=== PATIENT | male | born 1945 | race Caucasian/White ===

== ENCOUNTER 2020-07-03 12:30 | Inpatient (IN) | payer MEDICARE, BC ==
[2020-07-03 14:09] LABS: Hemoglobin 12.1 g/dL (13.5-17.5); Mean Corpuscular HGB CONC 33.6 g/dL (32.0-36.0); Mean Corpuscular Hemoglobin 30.1 pg (27.0-33.0); Mean Corpuscular Volume 89.6 fl (81.2-95.1); Platelet Count 313 10x3/uL (150-450); RBC Distribution Width 12.3 % (11.5-14.5); Red Blood Cell (RBC) Count 4.02 10x6/uL (4.32-5.72); White Blood Cell (WBC) Count 9.7 10x3/uL (3.5-10.5)
[2020-07-03 14:13] LABS: Anion Gap 15 mmol/L (10-20); BUN (Urea Nitrogen) 57 mg/dL (8.4-25.7); Calc. Creatinine Clearance 0 mL/min (70-130); Calcium 9.3 mg/dL (7.8-10.44); Carbon Dioxide 26 mmol/L (23-31); Chloride 100 mmol/L (98-107); Glucose 220 mg/dL (83-110); Potassium 4.1 mmol/L (3.5-5.1); Sodium 137 mmol/L (136-145)
[2020-07-03 14:15] LABS: INR-International Normal Ratio 0.9; PTT 24.1 sec (22.0-33.0); Prothrombin Time 10.3 sec (9.5-12.1)
[2020-07-04 01:05] LABS: SARS-CoV-2 PCR by NAA Not Detected (NotDetected)
[2020-07-08] MEDS ORDERED: EPINEPHrine 1 MG/ML AMP ONE (06:18)
[2020-07-08] MEDS ORDERED: Dexamethasone 4 mg/ml Vial ONE (06:18)
[2020-07-08] MEDS ORDERED: Albumin 5% 500 ML ONE (06:18)
[2020-07-08] MEDS ORDERED: Bupivacaine PF 0.5% 30 ML VIAL ONE (06:18)
[2020-07-08] MEDS ORDERED: Fentanyl 250 MCG/5 ML VIAL ONE (06:40)
[2020-07-08] MEDS ORDERED: Midazolam HCl 2 mg/2 ml Vial ONE (06:40)
[2020-07-08] MEDS ORDERED: Dexmedetomidine 200 MCG/2 ML VIAL ONE (06:41)
[2020-07-08] MEDS ORDERED: Phenylephrine 10 MG/ML VIAL ONE ×2 (06:41→09:27)
[2020-07-08] MEDS ORDERED: Insulin Regular 300 UNITS/3 ML VIAL ONE (06:41)
[2020-07-08] MEDS ORDERED: Heparin 30,000 units/30 ml VIAL ONE (08:06)
[2020-07-08] MEDS ORDERED: PROPOFOL 200 MG/20 ML VIAL ONE (08:06)
[2020-07-08] MEDS ORDERED: Heparin 5,000 UNITS/ML VIAL ONE (08:06)
[2020-07-08] MEDS ORDERED: Aminocaproic Acid 5 GM/20 ML VIAL ONE (08:06)
[2020-07-08] MEDS ORDERED: Calcium Chloride 1 GM/10 ML Abboject SYRINGE ONE (08:06)
[2020-07-08] MEDS ORDERED: Mannitol 12.5 GM/50 ML ONE (08:06)
[2020-07-08] MEDS ORDERED: Cardioplegic Soln 1,000 ML BAG ONE (08:06)
[2020-07-08] MEDS ORDERED: Thrombin 5000 UNITS/5 ML VIAL ONE (08:06)
[2020-07-08] MEDS ORDERED: Papaverine 60 MG/2 ML VIAL ONE (08:06)
[2020-07-08] MEDS ORDERED: Lidocaine 1% PF 5 ML VIAL ONE (08:06)
[2020-07-08] MEDS ORDERED: Potassium Chloride 60 MEQ/30 ML VIAL ONE (08:06)
[2020-07-08] MEDS ORDERED: PHENYLEPHRINE-NS 100 MCG/ML 10 ML SYRINGE ONE (08:06)
[2020-07-08] MEDS ORDERED: Sodium Bicarb 50 MEQ/50 ML Abboject 8.4% SYRINGE ONE (08:06)
[2020-07-08] MEDS ORDERED: Rocuronium Bromide 10 MG/ML (10ML VIAL) ONE (08:06)
[2020-07-08] MEDS ORDERED: Magnesium Sulfate 1 GM/2 ML VIAL ONE (08:06)
[2020-07-08] MEDS ORDERED: Lidocaine 2% PF 100 mg/5 ml Syringe ONE (08:06)
[2020-07-08] MEDS ORDERED: Acetaminophen 325 MG TAB PO PRN (10:58)
[2020-07-08] MEDS ORDERED: Bisacodyl 5 MG TAB PO PRN (10:58)
[2020-07-08] MEDS ORDERED: Post-Op Insulin Drip Protocol IVPB ONE (10:58)
[2020-07-08] MEDS ORDERED: Hetastarch 6% 500 ML 500 ML IVPB PRN (10:58)
[2020-07-08] MEDS ORDERED: Fentanyl 100 MCG/2 ML VIAL SLOW IVP PRN ×2 (10:58)
[2020-07-08] MEDS ORDERED: Mag-Al 1200 mg/1200 mg/30 ML UDCUP PO PRN (10:58)
[2020-07-08] MEDS ORDERED: Guaifenesin DM 100-10/5 ML UDCUP PO PRN (10:58)
[2020-07-08] MEDS ORDERED: Potassium Chloride 20 MEQ/100 ML PREMIX BAG IVPB PRN (10:58)
[2020-07-08] MEDS ORDERED: traMADol HCl 50 MG TAB PO PRN ×2 (10:58)
[2020-07-08] MEDS ORDERED: Phenylephrine 40 MG in Sodium Chloride 0.9% 250 ML 250 ML IVPB PRN (10:58)
[2020-07-08] MEDS ORDERED: hydrALAZINE 20 MG/ML VIAL SLOW IVP PRN (10:58)
[2020-07-08] MEDS ORDERED: Bisacodyl 10 MG SUPP PR PRN (10:58)
[2020-07-08] MEDS ORDERED: Morphine 2 MG/ML VIAL SLOW IVP PRN (10:58)
[2020-07-08] MEDS ORDERED: niCARdipine 25 MG in Sodium Chloride 0.9% 250 ML 250 ML IVPB PRN (10:58)
[2020-07-08] MEDS ORDERED: Promethazine HCl 25 MG/ML VIAL IM PRN (10:58)
[2020-07-08] MEDS ORDERED: Nitroglycerin 50 MG/250 ML BOT 250 ML IVPB PRN (10:58)
[2020-07-08] MEDS ORDERED: D5 1/2 NS w/20 mEq KCL 1,000 ML IV SCH (11:00)
[2020-07-08] MEDS ORDERED: Magnesium 2 GM/50 ML 2 GM in Premix Bag 1 BAG IVPB SCH (11:00)
[2020-07-08 11:23] LABS: Actual Bicarbonate (HCO3a) 22.8 mEq/L (22-28); Base Excess (BEa) -2.8 mEq/L (-2.0 to +3.0); CO2 Tension 42.7 mmHg (35.0-45.0); Calcium, Ionized (arterial) 1.09 mmol/L (1.12-1.30); Carboxyhemoglobin (COHb) 0.2 gm% (0.0-3.0); Hemoglobin (Hb) 10.9 g/dL (14.0-18.0); Potassium - ABG Lab 4.02 mmol/L (3.70-5.30); pH, Arterial 7.35 (7.35-7.45)
[2020-07-08 11:24] LABS: O2 Tension (PaO2), arterial 57.9 mmHg (> 70.0); Puncture Site Arterial Line
[2020-07-08] MEDS ORDERED: Albumin 5% 0 ML ONE (11:27)
[2020-07-08 11:28] LABS: ALV-art Gradient 245.225 mmHg (0-20)
[2020-07-08] MEDS ORDERED: DOPamine 400 MG/D5W 250 ML 0 ML ONE (11:28)
[2020-07-08 11:33] VITALS: BMI 31.4
[2020-07-08] MEDS ORDERED: Nitroglycerin 50 MG/250 ML BOT 250 ML ONE (11:34)
[2020-07-08 11:42] LABS: Hemoglobin 11.1 g/dL (14.0-18.0); Mean Corpuscular HGB CONC 32.4 g/dL (32.0-36.0); Mean Corpuscular Hemoglobin 29.7 pg (27.0-31.0); Mean Corpuscular Volume 91.7 fL (78.0-98.0); Platelet Count 214 thou/uL (130-400); RBC Distribution Width 11.7 % (11.5-14.5); Red Blood Cell (RBC) Count 3.72 mill/uL (4.70-6.10); White Blood Cell (WBC) Count 20.8 thou/uL (4.8-10.8)
[2020-07-08] MEDS ORDERED: Insulin Regular 300 UNITS/3 ML VIAL SC PRN (11:45)
[2020-07-08] MEDS ORDERED: HUMULIN R 100 UNITS in Sodium Chloride 0.9% 100 ML IVPB SCH (11:45)
[2020-07-08] MEDS ORDERED: Dextrose 5% in Water 1,000 ML IV PRN (11:45)
[2020-07-08] MEDS ORDERED: Dextrose 50% Abboject 50 ML SYRINGE SLOW IVP PRN (11:45)
[2020-07-08 11:52] LABS: INR-International Normal Ratio 1.3; PTT 34.1 sec (22.9-36.1); Prothrombin Time 16.4 sec (12.0-14.7)
[2020-07-08 11:53] LABS: Anion Gap 12 mmol/L (10-20); BUN (Urea Nitrogen) 42 mg/dL (8.4-25.7); Calc. Creatinine Clearance 43 mL/min (70-130); Calcium 7.5 mg/dL (7.8-10.44); Carbon Dioxide 21 mmol/L (23-31); Chloride 107 mmol/L (98-107); Glucose 97 mg/dL (83-110); Potassium 4.1 mmol/L (3.5-5.1); Sodium 136 mmol/L (136-145)
[2020-07-08 12:14] LABS: Band 18 % (5-11); Eosinophils 1 % (0-10); Lymphocytes 8 % (21-51); MDiff Complete? YES; Monocytes 5 % (0-10); Neutrophil 68 % (42-75); RBC Morphology Normal
[2020-07-08] MEDS: CEFAZOLIN 2 GM in Premix Bag 1 BAG IVPB SCH ×2 (13:45→22:17)
[2020-07-08] MEDS: Ondansetron PF 4 MG/2 ML Vial IVP PRN (16:45)
[2020-07-08 17:18] LABS: Hemoglobin 10.7 g/dL (14.0-18.0)
[2020-07-08 17:29] LABS: Potassium 3.6 mmol/L (3.5-5.1)
[2020-07-08] MEDS: Famotidine/PF 20 mg/2ml Vial SLOW IVP SCH (22:16)
[2020-07-09 04:32] LABS: #Lymphocytes 0.8 thou/uL (1.20-3.40); #Monocytes 1.3 thou/uL (0.11-0.59); #Neutrophils 13.1 thou/uL (1.40-6.50); %Basophils 0.1 % (0.0-1.0); %Eosinophils 0.1 % (0.0-10.0); %Lymphocytes 5.6 % (21.0-51.0); %Monocytes 8.3 % (0.0-10.0); Mean Corpuscular HGB CONC 33.1 g/dL (32.0-36.0); Mean Corpuscular Hemoglobin 30.5 pg (27.0-31.0); Mean Corpuscular Volume 92.1 fL (78.0-98.0); Mean Platelet Volume 7.6 fL (7.4-10.4); Platelet Count 198 thou/uL (130-400); RBC Distribution Width 11.9 % (11.5-14.5); Red Blood Cell (RBC) Count 2.96 mill/uL (4.70-6.10); White Blood Cell (WBC) Count 15.2 thou/uL (4.8-10.8)
[2020-07-09 04:55] LABS: Anion Gap 10 mmol/L (10-20); BUN (Urea Nitrogen) 48 mg/dL (8.4-25.7); Calc. Creatinine Clearance 37 mL/min (70-130); Calcium 8.2 mg/dL (7.8-10.44); Carbon Dioxide 23 mmol/L (23-31); Chloride 107 mmol/L (98-107); Glucose 138 mg/dL (83-110); Potassium 4.1 mmol/L (3.5-5.1); Sodium 136 mmol/L (136-145)
[2020-07-09] MEDS: Ondansetron PF 4 MG/2 ML Vial IVP PRN (05:36)
[2020-07-09] MEDS: CEFAZOLIN 2 GM in Premix Bag 1 BAG IVPB SCH (05:36)
[2020-07-09] MEDS: Famotidine/PF 20 mg/2ml Vial SLOW IVP SCH (07:51)
[2020-07-09] MEDS ORDERED: Nitroglycerin 0.4 MG TAB (25 Tab Bottle) SL PRN (07:51)
[2020-07-09] MEDS ORDERED: Promethazine HCl 25 MG/ML VIAL IM PRN (07:51)
[2020-07-09] MEDS ORDERED: Mag-Al 1200 mg/1200 mg/30 ML UDCUP PO PRN (07:51)
[2020-07-09] MEDS ORDERED: diphenhydrAMINE 25 MG CAP PO PRN (07:51)
[2020-07-09] MEDS ORDERED: Guaifenesin DM 100-10/5 ML UDCUP PO PRN (07:51)
[2020-07-09] MEDS ORDERED: Zolpidem Tartrate 5 MG TAB PO PRN (07:51)
[2020-07-09] MEDS ORDERED: Mineral Oil ENEMA PR PRN (07:51)
[2020-07-09] MEDS ORDERED: Bisacodyl 10 MG SUPP PR PRN (07:51)
[2020-07-09] MEDS ORDERED: Milk Of Magnesia 30 ML UDCUP PO PRN (07:51)
[2020-07-09] MEDS ORDERED: Bisacodyl 5 MG TAB PO PRN (07:51)
[2020-07-09] MEDS ORDERED: Aspirin 325 MG TAB PO SCH (09:00)
[2020-07-09] MEDS ORDERED: Lantus 1000 UNITS/10 ML VIAL SC SCH (09:00)
[2020-07-09] MEDS ORDERED: Magnesium 2 GM/50 ML 2 GM in Premix Bag 1 BAG IVPB SCH (09:00)
[2020-07-09] MEDS: Aspirin 325 mg Enteric Coated Tablet PO SCH (09:12)
[2020-07-09] MEDS: Famotidine 20 MG TAB PO SCH (09:12)
[2020-07-09] MEDS: Insulin Regular 300 UNITS/3 ML VIAL SC PRN ×3 (11:45→21:01)
[2020-07-09] MEDS ORDERED: Dextrose 5% in Water 1,000 ML IV PRN (15:30)
[2020-07-09] MEDS ORDERED: Dextrose 50% Abboject 50 ML SYRINGE SLOW IVP PRN (15:30)
[2020-07-09] MEDS: Rosuvastatin 10 MG TAB PO SCH (21:02)
[2020-07-10] MEDS: Insulin Regular 300 UNITS/3 ML VIAL SC PRN ×3 (05:45→17:11)
[2020-07-10] MEDS: Famotidine 20 MG TAB PO SCH (09:04)
[2020-07-10] MEDS: Lantus 1000 UNITS/10 ML VIAL SC SCH (09:04)
[2020-07-10] MEDS: Aspirin 325 mg Enteric Coated Tablet PO SCH (09:04)
[2020-07-10] MEDS: Rosuvastatin 10 MG TAB PO SCH (20:20)
[2020-07-11 07:14] VITALS: TEMP 98.3
[2020-07-11] MEDS: Famotidine 20 MG TAB PO SCH (09:38)
[2020-07-11] MEDS: Lantus 1000 UNITS/10 ML VIAL SC SCH (09:38)
[2020-07-11] MEDS: Aspirin 325 mg Enteric Coated Tablet PO SCH (09:38)
[2020-07-11 13:27] VITALS: BP 116/56
== END 2020-07-11 11:15 | disposition home or self-care (01) | DRG 236 ==
LOC: SURG A 07-08 05:57 → CCU 07-08 11:14 → 2NO 07-09 15:59
PROVIDERS: ADMIT Thoracic Surgery (Cardiothoracic Vascular Surgery); ATTEND Thoracic Surgery (Cardiothoracic Vascular Surgery)
PROC: 021109W Bypass Coronary Artery, Two Arteries from Aorta with Autologous Venous Tissue, Open Approach (ICD-10-PCS; principal; 2020-07-08)
PROC: 02100Z9 Bypass Coronary Artery, One Artery from Left Internal Mammary, Open Approach (ICD-10-PCS; 2020-07-08)
PROC: 06BQ0ZZ Excision of Left Saphenous Vein, Open Approach (ICD-10-PCS; 2020-07-08)
PROC: 5A1221Z Performance of Cardiac Output, Continuous (ICD-10-PCS; 2020-07-08)
DX: I25.10 Atherosclerotic heart disease of native coronary artery without angina pectoris (principal); N18.4 Chronic kidney disease, stage 4 (severe); Z20.822 Contact with and (suspected) exposure to COVID-19; E78.00 Pure hypercholesterolemia, unspecified; E78.2 Mixed hyperlipidemia; I65.23 Occlusion and stenosis of bilateral carotid arteries; E11.22 Type 2 diabetes mellitus with diabetic chronic kidney disease; I12.9 Hypertensive chronic kidney disease with stage 1 through stage 4 chronic kidney disease, or unspecified chronic kidney disease; E66.9 Obesity, unspecified; Z79.899 Other long term (current) drug therapy; Z79.82 Long term (current) use of aspirin; Z79.4 Long term (current) use of insulin; Z98.890 Other specified postprocedural states; Z90.89 Acquired absence of other organs; Z82.49 Family history of ischemic heart disease and other diseases of the circulatory system; Z80.51 Family history of malignant neoplasm of kidney; Z68.21 Body mass index [BMI] 21.0-21.9, adult
CPT/HCPCS: 36415; 36416; 36430; 71045; 80048; 82805; 85025; 85027; 85610; 85730; 86850; 86870; 86900; 86901; 86905; 86922; 87635; 93005; 93010; 93798; 94002; 94150; J0171; J0690; J1100; J1642; J1644; J1815; J2001; J2150; J2250; J2370; J2405; J2440; J2704; J3010; J3370; J3475; J3480; J3490; J7050; P9045; S0017; S0020; S0028; U0003; U0005

== ENCOUNTER 2020-07-03 12:31 | Outpatient (CLI) | payer MEDICARE, OTHER | END 2020-07-03 12:32 | disposition home or self-care (01) | LOC: LABBT 12:31 | PROVIDERS: ATTEND Thoracic Surgery (Cardiothoracic Vascular Surgery) | DX: Z01.818 Encounter for other preprocedural examination (principal); I25.10 Atherosclerotic heart disease of native coronary artery without angina pectoris; Z20.822 Contact with and (suspected) exposure to COVID-19 | CPT/HCPCS: 71046; 80048; 85027; 85610; 85730; 86850; 86900; 86901; U0003; U0005; 87635 ==

== ENCOUNTER 2023-01-25 09:00 | Inpatient (IN) | payer MEDICARE, BC ==
[2023-01-25 09:46] LABS: #Basophils 0.1 thou/uL (0.0-0.2); #Eosinphils 0.2 thou/uL (0.0-0.7); #Monocytes 0.8 thou/uL (0.11-0.59); #Neutrophils 9.2 thou/uL (1.40-6.50); %Basophils 0.7 % (0.0-1.0); %Eosinophils 1.3 % (0.0-10.0); %Lymphocytes 13.7 % (21.0-51.0); %Monocytes 6.5 % (0.0-10.0); %Neutrophils 77.4 % (42.0-75.0); Hematocrit 39.2 % (42.0-52.0); Hemoglobin 13.2 g/dL (14.0-18.0); Mean Corpuscular HGB CONC 33.7 g/dL (32.0-36.0); Mean Corpuscular Hemoglobin 30.7 pg (27.0-31.0); Mean Corpuscular Volume 91.2 fl (78.0-98.0); Mean Platelet Volume 9.4 fL (7.4-10.4); Platelet Count 222 10x3/uL (130-400); RBC Distribution Width 12.4 % (11.5-14.5); White Blood Cell (WBC) Count 11.9 10x3/uL (4.8-10.8)
[2023-01-25 10:12] LABS: ALT (SGPT) 39 U/L (8-55); AST (SGOT) 31 U/L (5-34); Albumin 3.9 g/dL (3.4-4.8); Alkaline Phosphatase 67 U/L (40-110); Anion Gap 13 mmol/L (10-20); BUN (Urea Nitrogen) 47 mg/dL (8.4-25.7); Bilirubin, Total 0.5 mg/dL (0.2-1.2); Calc. Creatinine Clearance 0 mL/min (70-130); Calcium 9.6 mg/dL (7.8-10.44); Carbon Dioxide 25 mmol/L (23-31); Chloride 100 mmol/L (98-107); Estimated GFR 24; Glucose 210 mg/dL (83-110); Lipase 52 U/L (8-78); Magnesium 1.9 mg/dL (1.6-2.6); Potassium 3.9 mmol/L (3.5-5.1); Protein, Total 6.9 g/dL (5.8-8.1); Sodium 134 mmol/L (136-145)
[2023-01-25 10:16] LABS: Troponin I 0.043 ng/mL (< 0.028)
[2023-01-25] MEDS ORDERED: Aspirin Chewable 81 MG TAB ONE (10:48)
[2023-01-25] MEDS ORDERED: Dextrose 5% in Water 1,000 ML IV PRN (10:58)
[2023-01-25] MEDS ORDERED: Glucagon 1 MG/ML KIT IM PRN (10:58)
[2023-01-25] MEDS ORDERED: Dextrose 50% Abboject 50 ML SYRINGE SLOW IVP PRN (10:58)
[2023-01-25] MEDS ORDERED: Ondansetron PF 4 MG/2 ML Vial IVP PRN (10:59)
[2023-01-25] MEDS ORDERED: Acetaminophen 325 MG TAB PO PRN (10:59)
[2023-01-25] MEDS ORDERED: traMADol HCl 50 MG TAB PO PRN (11:03)
[2023-01-25 11:28] LABS: Cardiac Risk 2.5 (Less than 4.5)
[2023-01-25 11:29] LABS: Hemoglobin A1c 7.9 % (4.0-6.0)
[2023-01-25 14:11] LABS: Troponin I 0.059 ng/mL (< 0.028)
[2023-01-25 15:49] VITALS: BMI 25.2
[2023-01-25 18:18] LABS: Troponin I 0.043 ng/mL (< 0.028)
[2023-01-25] MEDS: HumaLOG 300 UNITS/3 ML VIAL SC PRN (18:36)
[2023-01-26 06:11] LABS: #Basophils 0.1 thou/uL (0.0-0.2); #Eosinphils 0.2 thou/uL (0.0-0.7); #Neutrophils 5.9 thou/uL (1.40-6.50); %Basophils 0.7 % (0.0-1.0); %Eosinophils 2.1 % (0.0-10.0); %Lymphocytes 19.9 % (21.0-51.0); %Monocytes 11.2 % (0.0-10.0); %Neutrophils 65.9 % (42.0-75.0); Mean Corpuscular HGB CONC 32.4 g/dL (32.0-36.0); Mean Corpuscular Hemoglobin 30.2 pg (27.0-31.0); Mean Platelet Volume 9.5 fL (7.4-10.4); Platelet Count 214 10x3/uL (130-400); RBC Distribution Width 12.5 % (11.5-14.5); Red Blood Cell (RBC) Count 3.98 mill/uL (4.70-6.10)
[2023-01-26 06:35] LABS: Anion Gap 14 mmol/L (10-20); BUN (Urea Nitrogen) 46 mg/dL (8.4-25.7); Calc. Creatinine Clearance 25 mL/min (70-130); Calcium 9.2 mg/dL (7.8-10.44); Carbon Dioxide 25 mmol/L (23-31); Chloride 102 mmol/L (98-107); Estimated GFR 23; Glucose 151 mg/dL (83-110); Potassium 3.5 mmol/L (3.5-5.1); Sodium 137 mmol/L (136-145)
[2023-01-26] MEDS: Insulin Glargine 30 UNITS/0.3 ML VIAL SC SCH (08:26)
[2023-01-26] MEDS: Amlodipine 5 MG TAB PO SCH (08:28)
[2023-01-26] MEDS: Rosuvastatin 20 MG TAB PO SCH (08:28)
[2023-01-26] MEDS: Aspirin 81 mg Enteric Coated Tablet PO SCH (08:29)
[2023-01-26] MEDS: Ezetimibe 10 MG TAB PO SCH (08:29)
[2023-01-26] MEDS ORDERED: Rosuvastatin 10 MG TAB PO SCH (09:00)
[2023-01-27 03:17] VITALS: BP 114/55
[2023-01-27] MEDS ORDERED: Dexamethasone 4 mg/ml Vial ONE (06:39)
[2023-01-27] MEDS ORDERED: EPINEPHrine 1 MG/ML VIAL ONE (06:39)
[2023-01-27] MEDS ORDERED: Heparin 5,000 UNITS/ML VIAL ONE (06:39)
[2023-01-27] MEDS ORDERED: Bupivacaine PF 0.5% 30 ML VIAL ONE (06:40)
[2023-01-27] MEDS ORDERED: PHENYLEPHRINE-NS 100 MCG/ML 10 ML SYRINGE ONE (07:19)
[2023-01-27] MEDS ORDERED: ePHEDrine Sulfate 50 MG/10 ML VIAL ONE ×2 (07:19→07:49)
[2023-01-27] MEDS ORDERED: CEFAZOLIN 2 GM VIAL ONE (07:19)
[2023-01-27] MEDS ORDERED: Succinylcholine 200 MG/10 ml SYRINGE FS ONE ×2 (07:19→07:29)
[2023-01-27] MEDS ORDERED: Sodium Chloride 0.9% 100 ML ONE (07:19)
[2023-01-27] MEDS ORDERED: Rocuronium Bromide 10 MG/ML (10ML VIAL) ONE (07:19)
[2023-01-27] MEDS ORDERED: PROPOFOL 200 MG/20 ML VIAL ONE (07:19)
[2023-01-27] MEDS ORDERED: PROPOFOL 20 ML ONE (07:28)
[2023-01-27] MEDS ORDERED: fentaNYL PF 100 MCG/2 ML SYRINGE ONE ×2 (07:28→10:08)
[2023-01-27] MEDS ORDERED: Ondansetron PF 4 MG/2 ML Vial ONE ×2 (07:29→10:39)
[2023-01-27] MEDS ORDERED: Lidocaine 1% PF 5 ML VIAL ONE (07:29)
[2023-01-27] MEDS ORDERED: Heparin 10,000 UNITS/ 10 ML VIAL ONE ×2 (08:02→08:03)
[2023-01-27] MEDS ORDERED: Protamine Sulfate 50 MG/5 ML VIAL ONE ×2 (08:22)
[2023-01-27] MEDS ORDERED: Glycopyrrolate 0.2 MG/ML 5 ML SYRINGE ONE (08:43)
[2023-01-27] MEDS ORDERED: NEOSTIGMINE 3 MG/3 ML SYR 3 MG/3 ML SYRINGE ONE (08:43)
[2023-01-27] MEDS ORDERED: Acetaminophen 325 MG TAB PO PRN (09:25)
[2023-01-27] MEDS ORDERED: Nitroglycerin 50 MG/250 ML BOT 250 ML IVPB PRN (09:25)
[2023-01-27] MEDS ORDERED: hydrALAZINE 20 MG/ML VIAL SLOW IVP PRN (09:25)
[2023-01-27] MEDS ORDERED: Phenylephrine 40 MG in Sodium Chloride 0.9% 250 ML 250 ML IVPB PRN (09:25)
[2023-01-27] MEDS ORDERED: Ipratropium/Albuterol 3 ML NEB NEB PRN (09:25)
[2023-01-27] MEDS ORDERED: Ondansetron PF 4 MG/2 ML Vial IVP PRN (09:25)
[2023-01-27] MEDS ORDERED: fentaNYL 50 mcg/mL 1 mL Vial SLOW IVP PRN (09:25)
[2023-01-27] MEDS: Ipratropium/Albuterol 3 ML NEB NEB SCH ×3 (13:31→23:04)
[2023-01-27] MEDS: Sodium Chloride 0.9% 1,000 ML IV SCH ×2 (13:39→20:45)
[2023-01-27] MEDS: Ezetimibe 10 MG TAB PO SCH (13:39)
[2023-01-27] MEDS: Insulin Glargine 30 UNITS/0.3 ML VIAL SC SCH (13:39)
[2023-01-27] MEDS: Rosuvastatin 20 MG TAB PO SCH (13:39)
[2023-01-27] MEDS: Amlodipine 5 MG TAB PO SCH (13:40)
[2023-01-27] MEDS: CEFAZOLIN 2 GM in Sodium Chloride 0.9% 100 ML IVPB SCH ×5 (15:49→22:55)
[2023-01-27] MEDS: HumaLOG 300 UNITS/3 ML VIAL SC PRN (18:23)
[2023-01-28 05:11] LABS: Anion Gap 13 mmol/L (10-20); BUN (Urea Nitrogen) 44 mg/dL (8.4-25.7); Calc. Creatinine Clearance 26 mL/min (70-130); Calcium 8.5 mg/dL (7.8-10.44); Carbon Dioxide 24 mmol/L (23-31); Chloride 103 mmol/L (98-107); Estimated GFR 25; Glucose 190 mg/dL (83-110); Potassium 3.5 mmol/L (3.5-5.1); Sodium 136 mmol/L (136-145)
[2023-01-28 05:37] VITALS: TEMP 98.3
[2023-01-28] MEDS: Sodium Chloride 0.9% 1,000 ML IV SCH ×2 (05:49→08:20)
[2023-01-28] MEDS: CEFAZOLIN 2 GM in Sodium Chloride 0.9% 100 ML IVPB SCH (06:16)
[2023-01-28] MEDS: HumaLOG 300 UNITS/3 ML VIAL SC PRN (06:35)
[2023-01-28] MEDS: Ipratropium/Albuterol 3 ML NEB NEB SCH (07:50)
[2023-01-28] MEDS: Amlodipine 5 MG TAB PO SCH (08:20)
[2023-01-28] MEDS: Ezetimibe 10 MG TAB PO SCH (08:20)
[2023-01-28] MEDS: Rosuvastatin 20 MG TAB PO SCH (08:20)
[2023-01-28] MEDS: Aspirin 81 mg Enteric Coated Tablet PO SCH (08:21)
[2023-01-28] MEDS: Insulin Glargine 30 UNITS/0.3 ML VIAL SC SCH (08:21)
[2023-01-28] MEDS ORDERED: Aspirin Chewable 81 MG TAB PO SCH (09:00)
== END 2023-01-28 10:00 | disposition home or self-care (01) | DRG 37 ==
LOC: SUATTDRO 09:00 → ERS 09:00 → ERHOLD 10:48 → 2SW 15:04 → OBSVTOIN 01-26 16:37 → CCU 01-27 06:53
PROVIDERS: ADMIT Internal Medicine; ATTEND Family Medicine
PROC: 4A00X4Z Measurement of Central Nervous Electrical Activity, External Approach (ICD-10-PCS; principal; 2023-01-26)
PROC: 03CL0ZZ Extirpation of Matter from Left Internal Carotid Artery, Open Approach (ICD-10-PCS; 2023-01-27)
PROC: 03UL0KZ Supplement Left Internal Carotid Artery with Nonautologous Tissue Substitute, Open Approach (ICD-10-PCS; 2023-01-27)
DX: I65.22 Occlusion and stenosis of left carotid artery (principal); I21.A1 Myocardial infarction type 2; D62 Acute posthemorrhagic anemia; N18.4 Chronic kidney disease, stage 4 (severe); I25.10 Atherosclerotic heart disease of native coronary artery without angina pectoris; I12.9 Hypertensive chronic kidney disease with stage 1 through stage 4 chronic kidney disease, or unspecified chronic kidney disease; E11.22 Type 2 diabetes mellitus with diabetic chronic kidney disease; E78.00 Pure hypercholesterolemia, unspecified; E11.65 Type 2 diabetes mellitus with hyperglycemia; D32.0 Benign neoplasm of cerebral meninges; Z79.899 Other long term (current) drug therapy; Z79.82 Long term (current) use of aspirin; Z95.0 Presence of cardiac pacemaker; Z95.1 Presence of aortocoronary bypass graft; Z79.4 Long term (current) use of insulin
CPT/HCPCS: 36415; 36416; 70450; 70486; 70490; 70551; 71045; 72125; 80048; 80053; 80061; 83036; 83690; 83735; 84443; 84484; 85025; 88184; 88185; 88307; 93005; 93306; 93880; 94640; 95711; 95819; C1768; J0171; J1100; J1642; J1644; J1650; J1815; J2405; J2704; J2720; J3490; J7050; J7620; S0020

== ENCOUNTER 2023-01-29 20:12 | Emergency (ER) | payer MEDICARE, BC ==
[2023-01-29 21:33] LABS: #Basophils 0.1 thou/uL (0.0-0.2); #Eosinphils 0.2 thou/uL (0.0-0.7); #Neutrophils 5.5 thou/uL (1.40-6.50); %Basophils 0.6 % (0.0-1.0); %Eosinophils 2.7 % (0.0-10.0); %Lymphocytes 19.3 % (21.0-51.0); %Monocytes 11.8 % (0.0-10.0); %Neutrophils 65.4 % (42.0-75.0); Hematocrit 31.3 % (42.0-52.0); Hemoglobin 10.4 g/dL (14.0-18.0); Mean Corpuscular HGB CONC 33.2 g/dL (32.0-36.0); Mean Corpuscular Hemoglobin 30.4 pg (27.0-31.0); Mean Corpuscular Volume 91.5 fl (78.0-98.0); Mean Platelet Volume 9.6 fL (7.4-10.4); Platelet Count 202 10x3/uL (130-400); RBC Distribution Width 12.5 % (11.5-14.5); Red Blood Cell (RBC) Count 3.42 mill/uL (4.70-6.10); White Blood Cell (WBC) Count 8.5 10x3/uL (4.8-10.8)
[2023-01-29 21:56] LABS: ALT (SGPT) 14 U/L (8-55); AST (SGOT) 33 U/L (5-34); Albumin 3.1 g/dL (3.4-4.8); Alkaline Phosphatase 59 U/L (40-110); Anion Gap 11 mmol/L (10-20); BUN (Urea Nitrogen) 40 mg/dL (8.4-25.7); Bilirubin, Total 0.5 mg/dL (0.2-1.2); Calc. Creatinine Clearance 0 mL/min (70-130); Calcium 8.3 mg/dL (7.8-10.44); Carbon Dioxide 27 mmol/L (23-31); Chloride 102 mmol/L (98-107); Estimated GFR 26; Globulin 2.5 g/dL (2.4-3.5); Glucose 198 mg/dL (83-110); Potassium 3.6 mmol/L (3.5-5.1); Protein, Total 5.6 g/dL (5.8-8.1); Sodium 136 mmol/L (136-145)
== END 2023-01-29 22:35 | disposition home or self-care (01) ==
LOC: ERS 20:12
DX: R50.9 Fever, unspecified (principal)
CPT/HCPCS: 36415; 71045; 80053; 85025; 99284

== ENCOUNTER 2023-07-29 21:03 | Emergency (ER) | payer MEDICARE, BC, OTHER | END 2023-07-29 23:16 | disposition home or self-care (01) | LOC: ERS 21:03 | DX: S01.81XA Laceration without foreign body of other part of head, initial encounter (principal); I12.9 Hypertensive chronic kidney disease with stage 1 through stage 4 chronic kidney disease, or unspecified chronic kidney disease; E11.22 Type 2 diabetes mellitus with diabetic chronic kidney disease; N18.9 Chronic kidney disease, unspecified; E11.42 Type 2 diabetes mellitus with diabetic polyneuropathy; Z79.4 Long term (current) use of insulin; Z79.899 Other long term (current) drug therapy; Z79.82 Long term (current) use of aspirin; Z79.85 Long-term (current) use of injectable non-insulin antidiabetic drugs; W01.10XA Fall on same level from slipping, tripping and stumbling with subsequent striking against unspecified object, initial encounter | CPT/HCPCS: 70450 ==

== ENCOUNTER 2023-11-25 11:00 | Inpatient (IN) | payer MEDICARE, BC ==
[2023-11-25 11:31] VITALS: BMI 24.3
[2023-11-29] MEDS ORDERED: PROPOFOL 20 ML ONE (07:57)
[2023-11-29] MEDS ORDERED: Lidocaine 2% PF 5 ML VIAL ONE (07:57)
[2023-11-29] MEDS ORDERED: Rocuronium Bromide 10 MG/ML (10ML VIAL) ONE (07:57)
[2023-11-29] MEDS ORDERED: PHENYLEPHRINE-NS 100 MCG/ML 10 ML SYRINGE ONE ×2 (08:13→09:20)
[2023-11-29] MEDS ORDERED: Mag-Al 1200 mg/1200 mg/30 ML UDCUP PO PRN (08:43)
[2023-11-29] MEDS ORDERED: Acetaminophen 325 MG TAB PO PRN (08:43)
[2023-11-29] MEDS ORDERED: Milk Of Magnesia 30 ML UDCUP PO PRN (08:43)
[2023-11-29] MEDS ORDERED: HYDROcodone/Acetaminophen 10/325 mg Tablet PO PRN ×2 (08:43)
[2023-11-29] MEDS ORDERED: traMADol HCl 50 MG TAB PO PRN (08:43)
[2023-11-29] MEDS ORDERED: Morphine 2 MG/ML VIAL SLOW IVP PRN (08:43)
[2023-11-29] MEDS ORDERED: diphenhydrAMINE 50 MG/ML VIAL IVP PRN (08:43)
[2023-11-29] MEDS ORDERED: Promethazine 25 MG TAB PO PRN (08:43)
[2023-11-29] MEDS ORDERED: Cyclobenzaprine 10 MG TAB PO PRN (08:43)
[2023-11-29] MEDS ORDERED: Dextrose 50% Abboject 50 ML SYRINGE SLOW IVP PRN (08:46)
[2023-11-29] MEDS ORDERED: Dextrose 5% in Water 1,000 ML IV PRN (08:46)
[2023-11-29] MEDS ORDERED: Glucagon 1 MG/ML KIT IM PRN (08:46)
[2023-11-29] MEDS ORDERED: Vancomycin 1 GM VIAL ONE (08:49)
[2023-11-29] MEDS ORDERED: Fentanyl 250 MCG/5 ML VIAL ONE (08:51)
[2023-11-29] MEDS ORDERED: CEFAZOLIN 1 GM VIAL ONE (09:03)
[2023-11-29] MEDS ORDERED: Ondansetron PF 4 MG/2 ML Vial ONE (09:16)
[2023-11-29] MEDS ORDERED: Dexamethasone 4 mg/ml Vial ONE (09:16)
[2023-11-29] MEDS ORDERED: SUGAMMADEX SODIUM 200 MG/2 ML VIAL ONE (09:19)
[2023-11-29] MEDS ORDERED: ePHEDrine Sulfate 50 MG/10 ML VIAL ONE (09:20)
[2023-11-29] MEDS ORDERED: Glycopyrrolate 0.2 MG/ML 5 ML SYRINGE ONE (09:50)
[2023-11-29] MEDS ORDERED: Phenol 177 ML BOT PO PRN (12:12)
[2023-11-29] MEDS ORDERED: Benzocaine/Menthol 1 LOZ LOZ PO PRN (12:12)
[2023-11-29] MEDS ORDERED: fentaNYL 50 mcg/mL 1 mL Vial ONE (13:24)
[2023-11-29] MEDS ORDERED: Sodium Chloride 0.9% 100 ML ONE (14:26)
[2023-11-29] MEDS ORDERED: CEFAZOLIN 2 GM VIAL ONE (14:26)
[2023-11-29] MEDS: CEFAZOLIN 2 GM in Sodium Chloride 0.9% 100 ML IVPB SCH (14:30)
[2023-11-29] MEDS: Sodium Chloride 0.9% 1,000 ML IV SCH (17:36)
[2023-11-29] MEDS: Amlodipine 5 MG TAB PO SCH (17:37)
[2023-11-29] MEDS: Hydrochlorothiazide 25 MG TAB PO SCH (17:37)
[2023-11-29] MEDS ORDERED: Insulin Lispro 100 UNIT/ML 10 ML VIAL SC PRN (17:51)
[2023-11-29 18:33] LABS: #Basophils Less than 0.03 10x3/uL (0.0-0.2); #Eosinophils Less than 0.03 10x3/uL (0.0-0.7); %Basophils 0.1 % (0.0-1.0); %Lymphocytes 5.4 % (21.0-51.0); %Monocytes 2.1 % (0.0-10.0); Hematocrit 43.1 % (42.0-52.0); Hemoglobin 13.4 g/dL (14.0-18.0); Mean Corpuscular HGB CONC 31.1 g/dL (32.0-36.0); Mean Corpuscular Hemoglobin 30.5 pg (27.0-31.0); Mean Platelet Volume 9.4 fL (7.4-10.4); Platelet Count 195 10x3/uL (130-400); RBC Distribution Width 12.6 % (11.5-14.5)
[2023-11-29 18:52] LABS: ALT (SGPT) 30 U/L (8-55); AST (SGOT) 34 U/L (5-34); Albumin 3.3 g/dL (3.4-4.8); Alkaline Phosphatase 64 U/L (40-110); Anion Gap 16 mmol/L (10-20); BUN (Urea Nitrogen) 46 mg/dL (8.4-25.7); Bilirubin, Total 0.3 mg/dL (0.2-1.2); Calc. Creatinine Clearance 29 mL/min (70-130); Calcium 9.2 mg/dL (7.8-10.44); Carbon Dioxide 19 mmol/L (23-31); Chloride 107 mmol/L (98-107); Estimated GFR 28; Glucose 136 mg/dL (83-110); Potassium 4.3 mmol/L (3.5-5.1); Protein, Total 6.3 g/dL (5.8-8.1); Sodium 138 mmol/L (136-145)
[2023-11-30 05:19] LABS: #Basophils Less than 0.03 10x3/uL (0.0-0.2); #Eosinophils Less than 0.03 10x3/uL (0.0-0.7); %Basophils 0.1 % (0.0-1.0); %Lymphocytes 8.4 % (21.0-51.0); %Monocytes 7.9 % (0.0-10.0); %Neutrophils 83.1 % (42.0-75.0); Hematocrit 38.5 % (42.0-52.0); Hemoglobin 12.2 g/dL (14.0-18.0); Mean Corpuscular HGB CONC 31.7 g/dL (32.0-36.0); Mean Corpuscular Hemoglobin 30.1 pg (27.0-31.0); Mean Corpuscular Volume 95.1 fL (78.0-98.0); Mean Platelet Volume 9.5 fL (7.4-10.4); Platelet Count 225 10x3/uL (130-400); RBC Distribution Width 12.7 % (11.5-14.5); Red Blood Cell (RBC) Count 4.05 mill/uL (4.70-6.10)
[2023-11-30 05:30] LABS: Anion Gap 19 mmol/L (10-20); BUN (Urea Nitrogen) 53 mg/dL (8.4-25.7); Calc. Creatinine Clearance 26 mL/min (70-130); Carbon Dioxide 18 mmol/L (23-31); Chloride 106 mmol/L (98-107); Estimated GFR 26; Glucose 188 mg/dL (83-110); Potassium 4.4 mmol/L (3.5-5.1); Sodium 139 mmol/L (136-145)
[2023-11-30] MEDS: Ondansetron PF 4 MG/2 ML Vial IVP PRN (06:41)
[2023-11-30] MEDS: Lisinopril 10 MG TAB PO SCH (08:38)
[2023-11-30 16:31] VITALS: BMI 24.3
[2023-11-30] MEDS: Insulin Lispro 100 UNIT/ML 10 ML VIAL SC PRN (18:06)
[2023-11-30] MEDS: Senokot S 8.6-50 MG TAB PO SCH (21:05)
[2023-12-01] MEDS ORDERED: Polyethylene Glycol 3350 17 GM Packet PO SCH (09:00)
[2023-12-01 09:15] VITALS: BP 138/69; TEMP 97.6
[2023-12-01] MEDS: Insulin Glargine 30 UNITS/0.3 ML VIAL SC SCH (09:37)
[2023-12-01] MEDS: Rosuvastatin 20 MG TAB PO SCH (09:39)
[2023-12-01] MEDS: Calcitriol 0.25 MCG CAP PO SCH (09:39)
[2023-12-01] MEDS: Ezetimibe 10 MG TAB PO SCH (09:40)
== END 2023-12-01 10:55 | disposition home health service (06) | DRG 430 ==
LOC: SURG A 11-29 07:30 → EDSTATUS 11-29 11:00 → SURG A 11-29 16:43
PROVIDERS: ADMIT Neurological Surgery; ATTEND Neurological Surgery
PROC: 0RG20A0 Fusion of 2 or more Cervical Vertebral Joints with Interbody Fusion Device, Anterior Approach, Anterior Column, Open Approach (ICD-10-PCS; principal; 2023-11-29)
PROC: 0RG2071 Fusion of 2 or more Cervical Vertebral Joints with Autologous Tissue Substitute, Posterior Approach, Posterior Column, Open Approach (ICD-10-PCS; 2023-11-29)
PROC: 0RT30ZZ Resection of Cervical Vertebral Disc, Open Approach (ICD-10-PCS; 2023-11-29)
PROC: 00NW0ZZ Release Cervical Spinal Cord, Open Approach (ICD-10-PCS; 2023-11-29)
DX: M48.02 Spinal stenosis, cervical region (principal); M47.12 Other spondylosis with myelopathy, cervical region; N18.4 Chronic kidney disease, stage 4 (severe); I12.9 Hypertensive chronic kidney disease with stage 1 through stage 4 chronic kidney disease, or unspecified chronic kidney disease; E78.5 Hyperlipidemia, unspecified; I25.10 Atherosclerotic heart disease of native coronary artery without angina pectoris; E11.22 Type 2 diabetes mellitus with diabetic chronic kidney disease; Z79.899 Other long term (current) drug therapy; Z95.1 Presence of aortocoronary bypass graft; Z86.73 Personal history of transient ischemic attack (TIA), and cerebral infarction without residual deficits
CPT/HCPCS: 36415; 36416; 80048; 80053; 82306; 85025; C1713; C1889; J0690; J1100; J1815; J2405; J2704; J3010; J3370; J7030

== ENCOUNTER 2023-11-25 11:13 | Outpatient (CLI) | payer MEDICARE, BC, OTHER ==
[2023-11-25 12:15] LABS: #Basophils 0.06 10x3/uL (0.0-0.2); %Basophils 0.7 % (0.0-1.0); %Eosinophils 2.3 % (0.0-10.0); %Lymphocytes 27.3 % (21.0-51.0); %Monocytes 9.4 % (0.0-10.0); %Neutrophils 59.9 % (42.0-75.0); Hemoglobin 12.6 g/dL (14.0-18.0); Mean Corpuscular HGB CONC 32.3 g/dL (32.0-36.0); Mean Corpuscular Hemoglobin 30.4 pg (27.0-31.0); Mean Platelet Volume 9.7 fL (7.4-10.4); Platelet Count 239 10x3/uL (130-400); RBC Distribution Width 12.6 % (11.5-14.5); Red Blood Cell (RBC) Count 4.15 mill/uL (4.70-6.10)
[2023-11-25 12:34] LABS: Anion Gap 14 mmol/L (10-20); BUN (Urea Nitrogen) 55 mg/dL (8.4-25.7); Calc. Creatinine Clearance 0 mL/min (70-130); Calcium 10.1 mg/dL (7.8-10.44); Carbon Dioxide 28 mmol/L (23-31); Chloride 100 mmol/L (98-107); Estimated GFR 23; Glucose 251 mg/dL (83-110); Potassium 4.3 mmol/L (3.5-5.1); Sodium 138 mmol/L (136-145)
== END 2023-11-25 11:14 | disposition home or self-care (01) ==
LOC: LABBT 11:13
PROVIDERS: ATTEND Neurological Surgery
DX: Z01.818 Encounter for other preprocedural examination (principal); M47.12 Other spondylosis with myelopathy, cervical region
CPT/HCPCS: 80048; 85025; 93005; 93010